=== PATIENT | male | born 1970 | race African-American/Black ===

== ENCOUNTER 2018-09-29 12:31 | Emergency (ER) | payer SELFPAY ==
[2018-09-29] MEDS ORDERED: ASPIRIN 81 MG TABLET, CHEWABLE PO ONE (13:05)
--- NOTE | 2018-09-29 13:07 | ER Document Report ---
ED Medical Screen (RME) - General Chief Complaint: Chest Pain Stated Complaint: CHEST PAINS Time Seen by Provider: 09/29/18 13:04 Mode of Arrival: Ambulatory Information source: Patient Notes: 48-year-old male presented to ED for complaint of chest pain/discomfort/tightness/pressure. He stated it started last night and has been on and off yesterday and today. He states that he has had it on and off for years. He states his pain level when he came to the emergency room was a 3 but last night it was about a 5. He has a history of high blood pressure and cholesterol but has not been on any cholesterol medications because he cannot afford it. He is a former smoker drinks on the weekends, denies using any kind of drugs. He works in a [employer]. He has no tenderness to palpation to the chest. Patient is alert oriented respirations regular and unlabored speaking in full sentences. I have greeted and performed a rapid initial assessment of this patient. A comprehensive ED assessment and evaluation of the patient, analysis of test results and completion of medical decision making process will be conducted by an additional ED providers. Dictation of this chart was performed using voice recognition software; therefore, there may be some unintended grammatical errors. TRAVEL OUTSIDE OF THE [place] IN LAST 30 DAYS: No - Related Data Allergies/Adverse Reactions: No Known Allergies Allergy (Verified 03/04/13 13:12) Past Medical History - Past Medical History Cardiac Medical History: Reports: Hx Hypercholesterolemia, Hx Hypertension Pulmonary Medical History: Denies: Hx Tuberculosis Neurological Medical History: Reports: Hx Migraine Musculoskeltal Medical History: Reports Hx Multiple Sclerosis - Questionable Past Surgical History: Reports: Hx Orthopedic Surgery - L hip w hardware, R knee, right wrist. Denies: Hx Pacemaker - Immunizations Hx Diphtheria, Pertussis, Tetanus Vaccination: Yes Physical Exam - Vital signs Vitals: Temp Pulse Resp BP Pulse Ox 98.1 F 68 20 161/82 H 93 09/29/18 12:56 09/29/18 12:56 09/29/18 12:56 09/29/18 12:56 09/29/18 12:56 Course - Vital Signs Vital signs: Temp Pulse Resp BP Pulse Ox 98.1 F 68 20 161/82 H 93 09/29/18 12:56 09/29/18 12:56 09/29/18 12:56 09/29/18 12:56 09/29/18 12:56
--- NOTE | 2018-09-29 13:52 | RADIOLOGY REPORT (SQ) ---
EXAM DESCRIPTION: CHEST 2 VIEWS COMPLETED DATE/TIME: 09/29/2018 1:36 pm REASON FOR STUDY: Chest tightness/discomfort/pressure started last n COMPARISON: 09/09/2011 EXAM PARAMETERS: NUMBER OF VIEWS: two views TECHNIQUE: Digital Frontal and Lateral radiographic views of the chest acquired. RADIATION DOSE: NA LIMITATIONS: none FINDINGS: LUNGS AND PLEURA: No opacities, masses or pneumothorax. No pleural effusion. MEDIASTINUM AND HILAR STRUCTURES: No masses or contour abnormalities. HEART AND VASCULAR STRUCTURES: Heart normal size. No evidence for failure. BONES: No acute findings. HARDWARE: None in the chest. OTHER: No other significant finding. IMPRESSION: NO ACUTE RADIOGRAPHIC FINDING IN THE CHEST. TECHNICAL DOCUMENTATION: JOB ID: [id number] [employer]- All Rights Reserved Reading location - IP/workstation name: [email or web address]
[2018-09-29 14:17] LABS: ABSOLUTE BASOPHILS # (AUTO) 0.1 10^3/uL (0.0-0.2); ABSOLUTE EOSINOPHILS # (AUTO) 0.1 10^3/uL (0.0-0.6); ABSOLUTE LYMPHOCYTES (AUTO) 3.4 10^3/uL (0.5-4.7); ABSOLUTE MONOCYTES (AUTO) 0.5 10^3/uL (0.1-1.4); ABSOLUTE NEUT (AUTO) 3.2 10^3/uL (1.7-8.2); BASOPHILS % (AUTO) 0.7 % (0-2); EOSINOPHILS % (AUTO) 1.6 % (0-6); HEMATOCRIT 42.2 % (37.9-51.0); HEMOGLOBIN 13.8 g/dL (13.5-17.0); LYMPHOCYTES % (AUTO) 46.3 % (13-45); MEAN CORPUSCULAR HEMOGLOBIN 27.4 pg (27.0-33.4); MEAN CORPUSCULAR HGB CONC 32.7 g/dL (32.0-36.0); MEAN CORPUSCULAR VOLUME 84 fl (80-97); MONOCYTES % (AUTO) 6.6 % (3-13); PLATELET COUNT 229 10^3/uL (150-450); RED BLOOD COUNT 5.03 10^6/uL (4.35-5.55); RED CELL DISTRIBUTION WIDTH 13.6 % (11.5-14.0); SEGMENTED NEUTROPHILS % (AUTO) 44.8 % (42-78); TOTAL CELLS COUNTED % (AUTO) 100 %; WHITE BLOOD COUNT 7.2 10^3/uL (4.0-10.5)
[2018-09-29 14:21] LABS: APPEARANCE,URINE CLEAR; BILIRUBIN,URINE NEGATIVE (NEGATIVE); COLOR,URINE YELLOW; GLUCOSE, URINE 50 mg/dL (NEGATIVE); KETONES,URINE NEGATIVE (NEGATIVE); LEUKOCYTE ESTERASE,URINE NEGATIVE (NEGATIVE); NITRITE,URINE NEGATIVE (NEGATIVE); PROTEIN,URINE NEGATIVE (NEGATIVE); URINE SPECIFIC GRAVITY 1.021; UROBILINOGEN,URINE NEGATIVE mg/dL (<2.0)
[2018-09-29 14:30] LABS: INTERNATIONAL RATION (INR) 0.93; PROTHROMBIN TIME 12.5 SEC (11.4-15.4)
[2018-09-29 14:31] LABS: PARTIAL THROMBOPLASTIN TIME 28.1 SEC (23.5-35.8)
[2018-09-29 14:36] LABS: URINE AMPHETAMINES SCREEN NEGATIVE; URINE BARBITURATES SCREEN NEGATIVE; URINE BENZODIAZEPINES SCREEN NEGATIVE; URINE COCAINE SCREEN NEGATIVE; URINE MARIJUANA (THC) SCREEN NEGATIVE; URINE METHADONE SCREEN NEGATIVE; URINE PHENCYCLIDINE SCREEN NEGATIVE
[2018-09-29 14:39] LABS: ALANINE AMINOTRANSFERASE 47 U/L (21-72); ALBUMIN 4.4 g/dL (3.5-5.0); ALKALINE PHOSPHATASE 67 U/L (38-126); ANION GAP 9 (5-19); ASPARTATE AMINO TRANSFERASE 30 U/L (17-59); BILIRUBIN,DIRECT 0.2 mg/dL (0.0-0.4); BILIRUBIN,TOTAL 0.3 mg/dL (0.2-1.3); BLOOD UREA NITROGEN 11 mg/dL (7-20); CALCIUM 9.5 mg/dL (8.4-10.2); CARBON DIOXIDE 29 mmol/L (22-30); CHLORIDE 105 mmol/L (98-107); CREATINE KINASE 153 U/L (55-170); GLUCOSE 109 mg/dL (75-110); POTASSIUM 4.2 mmol/L (3.6-5.0); TOTAL PROTEIN 7.6 g/dL (6.3-8.2)
[2018-09-29 14:50] LABS: CREATINE KINASE MB 0.66 ng/mL (<4.55)
[2018-09-29 14:54] LABS: TROPONIN I < 0.012 ng/mL
--- NOTE | 2018-09-29 18:47 | ER Document Report ---
ED Cardiac - General Chief Complaint: Chest Pain Stated Complaint: CHEST PAINS Time Seen by Provider: 09/29/18 13:04 Primary Care Provider: GLORIA JUAREZ MD [ACTIVE STAFF] - Follow up tomorrow Mode of Arrival: Ambulatory TRAVEL OUTSIDE OF THE [place] IN LAST 30 DAYS: No - HPI Notes: Patient is a 48-year-old male that presents to the emergency department for chief complaint of chest pain. Patient reports the pain on the left side of his chest that has been intermittent in nature and started yesterday evening. He describes it as a "charley horse" sensation. The pain does not radiate. He states usually it occurs after work and while he is at rest. He denies associated shortness of breath, palpitations, diaphoresis, nausea vomiting and syncopal episodes. There are no aggravating or relieving factors. He states he has been having these types of pains on and off for the last few years but felt it was time to get them evaluated. He is currently taking blood pressure medication but states noncompliance with cholesterol medicine and is currently in transition between PCPs. Patient denies ever having a stress test or known coronary artery dis ease. He denies recent surgery, travel, immobilization, lower extremity edema, and family history of DVT/PE. He has no personal history of cancer. Currently he states he is pain-free. Past Medical History: Hypertension, hyperlipidemia Past Surgical History: Negative Social History: Former smoker. Social alcohol. Denies drug use Family History: Reviewed and noncontributory for presenting illness Allergies: Reviewed, see documented allergy list. REVIEW OF SYSTEMS: CONSTITUTIONAL : No fever No chills No diaphoresis No recent illness EENT: No vision changes No congestion No sore throat CARDIOVASCULAR: chest pain No palpitations RESPIRATORY: No shortness of breath No cough No difficulty breathing GASTROINTESTINAL: No abdominal pain No nausea No vomiting No diarrhea GENITOURINARY: No dysuria No hematuria No difficulty urinating MUSCULOSKELETAL: No back pain No leg pain No arm pain SKIN: No rashes No lesions LYMPHATIC: No swollen, enlarged glands. NEUROLOGICAL: No lightheadedness No headache No weakness No paresthesias PSYCHIATRIC: No anxiety No depression PHYSICAL EXAMINATION: Vital signs reviewed, nursing noted reviewed. GENERAL: Well-appearing, overweight and in no acute distress. HEAD: Atraumatic, normocephalic. EYES: Eyes appear normal, extraocular movements intact, sclera anicteric, conjunctiva are normal. ENT: nares patent, oropharynx clear without exudates. Moist mucous membranes. NECK: Normal range of motion, supple without lymphadenopathy LUNGS: Breath sounds clear to auscultation bilaterally and equal. No wheezes rales or rhonchi. HEART: Regular rate and rhythm without murmurs, +5/5 bilateral radial pulses ABDOMEN: Soft, nontender, normoactive bowel sounds. No rebound, guarding, or rigidity. No masses appreciated. EXTREMITIES: Nontender, good range of motion, no pitting or edema. NEUROLOGICAL: No focal neurological deficits. Moves all extremities spontaneously Motor and sensory grossly intact on exam. PSYCH: Normal mood, normal affect. SKIN: Warm, Dry, normal turgor, no rashes or lesions noted on exposed skin - Related Data Allergies/Adverse Reactions: No Known Allergies Allergy (Verified 09/29/18 13:05) Past Medical History - General Information source: Patient - Social History Smoking Status: Former Smoker Chew tobacco use (# tins/day): No Frequency of alcohol use: Occasional Drug Abuse: None Family History: Reviewed & Not Pertinent Patient has suicidal ideation: No Patient has homicidal ideation: No - Past Medical History Cardiac Medical History: Reports: Hx Hypercholesterolemia, Hx Hypertension Pulmonary Medical History: Denies: Hx Tuberculosis Neurological Medical History: Reports: Hx Migraine Renal/ Medical History: Denies: Hx Peritoneal Dialysis Musculoskeletal Medical History: Reports Hx Multiple Sclerosis - Questionable Past Surgical History: Reports: Hx Orthopedic Surgery - L hip w hardware, R knee, right wrist. Denies: Hx Pacemaker - Immunizations Hx Diphtheria, Pertussis, Tetanus Vaccination: Yes Physical Exam - Vital signs Vitals: Temp Pulse Resp BP Pulse Ox 98.1 F 68 20 161/82 H 93 09/29/18 12:56 09/29/18 12:56 09/29/18 12:56 09/29/18 12:56 09/29/18 12:56 Course - Re-evaluation Re-evalutation: 09/29/18 18:45 Vitals reviewed. Nursing notes reviewed. Patient is well-appearing and in no acute distress. His initial cardiac work-up is negative including a normal troponin. Patient's EKG shows sinus rhythm without ectopy or ischemic changes. His heart score is 2 putting him at low risk of major adverse cardiac event in the immediate future. Delta troponin has been ordered. Laboratory 09/29/18 09/29/18 09/29/18 13:59 13:59 13:59 WBC 7.2 RBC 5.03 Hgb 13.8 Hct 42.2 MCV 84 MCH 27.4 MCHC 32.7 RDW 13.6 Plt Count 229 Seg Neutrophils % 44.8 Lymphocytes % 46.3 H Monocytes % 6.6 Eosinophils % 1.6 Basophils % 0.7 Absolute Neutrophils 3.2 Absolute Lymphocytes 3.4 Absolute Monocytes 0.5 Absolute Eosinophils 0.1 Absolute Basophils 0.1 PT 12.5 INR 0.93 APTT 28.1 Sodium 142.8 Potassium 4.2 Chloride 105 Carbon Dioxide 29 Anion Gap 9 BUN 11 Creatinine 0.85 Est GFR ( Amer) > 60 Est GFR (Non-Af Amer) > 60 Glucose 109 Calcium 9.5 Total Bilirubin 0.3 Direct Bilirubin 0.2 Neonat Total Bilirubin Not Reportable Neonat Direct Bilirubin Not Reportable Neonat Indirect Bili Not Reportable AST 30 ALT 47 Alkaline Phosphatase 67 Creatine Kinase 153 CK-MB (CK-2) Troponin I Total Protein 7.6 Albumin 4.4 Lipase 399.8 H Urine Color Urine Appearance Urine pH Ur Specific [place] Urine Protein Urine Glucose (UA) Urine Ketones Urine Blood Urine Nitrite Urine Bilirubin Urine Urobilinogen Ur Leukocyte Esterase Urine WBC (Auto) Urine RBC (Auto) Squamous Epi Cells Auto Urine Mucus (Auto) Urine Ascorbic Acid Urine Opiates Screen Urine Methadone Screen Ur Barbiturates Screen Ur Phencyclidine Scrn Ur Amphetamines Screen U Benzodiazepines Scrn Urine Cocaine Screen U Marijuana (THC) Screen 09/29/18 09/29/18 09/29/18 13:59 13:59 13:59 WBC RBC Hgb Hct MCV MCH MCHC RDW Plt Count Seg Neutrophils % Lymphocytes % Monocytes % Eosinophils % Basophils % Absolute Neutrophils Absolute Lymphocytes Absolute Monocytes Absolute Eosinophils Absolute Basophils PT INR APTT Sodium Potassium Chloride Carbon Dioxide Anion Gap BUN Creatinine Est GFR ( Amer) Est GFR (Non-Af Amer) Glucose Calcium Total Bilirubin Direct Bilirubin Neonat Total Bilirubin Neonat Direct Bilirubin Neonat Indirect Bili AST ALT Alkaline Phosphatase Creatine Kinase CK-MB (CK-2) 0.66 Troponin I < 0.012 Total Protein Albumin Lipase Urine Color YELLOW Urine Appearance CLEAR Urine pH 5.0 Ur Specific [place] 1.021 Urine Protein NEGATIVE Urine Glucose (UA) 50 H Urine Ketones NEGATIVE Urine Blood NEGATIVE Urine Nitrite NEGATIVE Urine Bilirubin NEGATIVE Urine Urobilinogen NEGATIVE Ur Leukocyte Esterase NEGATIVE Urine WBC (Auto) 5 Urine RBC (Auto) 1 Squamous Epi Cells Auto <1 Urine Mucus (Auto) OCC Urine Ascorbic Acid 40 H Urine Opiates Screen NEGATIVE Urine Methadone Screen NEGATIVE Ur Barbiturates Screen NEGATIVE Ur Phencyclidine Scrn NEGATIVE Ur Amphetamines Screen NEGATIVE U Benzodiazepines Scrn NEGATIVE Urine Cocaine Screen NEGATIVE U Marijuana (THC) Screen NEGATIVE Chest X-Ray 09/29/18 13:04 IMPRESSION: NO ACUTE RADIOGRAPHIC FINDING IN THE CHEST. 09/29/18 19:17 Patient second troponin is also negative. He has remained chest pain-free. He will be referred to cardiology for outpatient stress test and told to return for new or worsening symptoms. He is stable at discharge. - Vital Signs Vital signs: Temp Pulse Resp BP Pulse Ox 98.1 F 68 20 161/82 H 93 09/29/18 12:56 09/29/18 12:56 09/29/18 12:56 09/29/18 12:56 09/29/18 12:56 - Laboratory Result Diagrams: 09/29/18 13:59 09/29/18 13:59 Laboratory results interpreted by me: 09/29/18 09/29/18 09/29/18 13:59 13:59 13:59 Lymphocytes % 46.3 H Lipase 399.8 H Urine Glucose (UA) 50 H Urine Ascorbic Acid 40 H - EKG Interpretation by Me Additional EKG results interpreted by me: 09/29/18 18:46 Interpreted by myself 1245: Normal sinus rhythm, rate 63, normal axis, no ectopy, no STEMI Discharge - Discharge Clinical Impression: Chest pain Qualifiers: Chest pain type: unspecified Qualified Code(s): R07.9 - Chest pain, unspecified Condition: Stable Disposition: HOME, SELF-CARE Instructions: Chest Pain of Unclear Cause ([facility]) Additional Instructions: Please return to the emergency department if you have any worsening, or concern of your symptoms. Please return to the emergency department if you develop chest pain, difficulty breathing, severe abdominal pain, or ongoing vomiting. Please follow-up with your primary care physician in 2-3 days and any other recommended physicians. If prescribed, take all medications as directed. If you have any questions or concerns do not hesitate to return the emergency department for evaluation. Contact Dr. Juarez tomorrow to schedule outpatient cardiac stress test Referrals: GLORIA JUAREZ MD [ACTIVE STAFF] - Follow up tomorrow
[2018-09-29 19:34] VITALS: BP 142/81
--- NOTE | 2018-09-29 23:50 | EKG REPORT ---
SEVERITY:- NORMAL ECG - SINUS RHYTHM : Confirmed by: Trey Hopper 29-Sep-2018 23:48:37
== END 2018-09-29 19:40 | disposition home or self-care (01) ==
LOC: ER 12:31
DX: R07.9 Chest pain, unspecified (principal); I10 Essential (primary) hypertension; Z79.899 Other long term (current) drug therapy; Z87.891 Personal history of nicotine dependence; Z91.14 Patient's other noncompliance with medication regimen
CPT/HCPCS: 36415; 71046; 80053; 80307; 81001; 82550; 82553; 83690; 84484; 85025; 85610; 85730; 93005; 93010; 99285

== ENCOUNTER 2018-11-09 22:54 | Emergency (ER) | payer OTHER ==
[2018-11-09 23:01] VITALS: BP 162/80
[2018-11-10] MEDS ORDERED: HYDROCODONE/ACETAMINOPHEN 5-325 MG (6 TAB/ER DISP) PO PRN (00:40)
[2018-11-10] MEDS ORDERED: PENICILLIN V POTASSIUM 500 MG TABLET PO ONE (00:40)
--- NOTE | 2018-11-10 00:51 | ER Document Report ---
HPI - HPI Time Seen by Provider: 11/10/18 00:29 Context: Patient is a 48-year-old male that comes to the emergency department for chief complaint of pain in his left upper tooth and over the tongue. He states he thinks he bit his tongue yesterday and now the area is rubbing and worsening pain. He states he cannot sleep because of it. He states he does not have dental insurance anymore and he is not sure what today. He denies sore throat, neck pain, fever, difficulty swallowing or breathing, or any other complaints at this time. Past Medical History - General Information source: Patient - Social History Smoking Status: Never Smoker Drug Abuse: None Lives with: Family Family History: Reviewed & Not Pertinent Patient has suicidal ideation: No Patient has homicidal ideation: No - Past Medical History Cardiac Medical History: Reports: Hx Hypercholesterolemia, Hx Hypertension Pulmonary Medical History: Denies: Hx Tuberculosis Neurological Medical History: Reports: Hx Migraine Renal/ Medical History: Denies: Hx Peritoneal Dialysis Musculoskeletal Medical History: Reports Hx Multiple Sclerosis - Questionable Past Surgical History: Reports: Hx Orthopedic Surgery - L hip w hardware, R knee, right wrist. Denies: Hx Pacemaker - Immunizations Hx Diphtheria, Pertussis, Tetanus Vaccination: Yes Vertical Provider Document - CONSTITUTIONAL General Appearance: WD/WN, No Apparent Distress - INFECTION CONTROL TRAVEL OUTSIDE OF THE [place] IN LAST 30 DAYS: No - HEENT HEENT: Atraumatic, Normocephalic. negative: Normal ENT Exam - Left upper posterior molar with dental fracture, tenderness on palpation, but no significant surrounding erythema or swelling. Scattered dental caries otherwise without signs of infection. There is a healing wound over the top of the tongue with some scraping over the area, however the area is not significantly tender, there is no current bleeding, there is no fluctuance or induration, there is no significant tenderness or swelling. Unremarkable ENT exam otherwise including normal uvula and normal pharyngeal exam. Normal nasal and sinus exams. - NECK Neck: Normal Inspection. negative: Lymphadenopathy-Left, Lymphadenopathy-Right - RESPIRATORY Respiratory: Breath Sounds Normal, No Respiratory Distress - CARDIOVASCULAR Cardiovascular: Regular Rate, Regular Rhythm - GI/ABDOMEN Gastrointestinal: Abdomen Soft, Abdomen Non-Tender - BACK Back: Normal Inspection - MUSCULOSKELETAL/EXTREMETIES Musculoskeletal/Extremeties: MAEW, FROM, Non-Tender - NEURO Level of Consciousness: Awake, Alert, Appropriate Motor/Sensory: No Motor Deficit, No Sensory Deficit - DERM Integumentary: Warm, Dry, No Rash Course - Re-evaluation Re-evalutation: Patient will be treated with antibiotics for for the pain developing at the dental caries. Tongue evaluation shows healing wound but no concerning findings otherwise. I did discuss [id number] options, antibiotics, dental follow- up, and provided him with a few pain med doses so that he can sleep. Discussed return precautions. Patient states understanding and agreement. - Vital Signs Vital signs: Temp Pulse Resp BP Pulse Ox 98.2 F 73 18 162/80 H 96 11/09/18 23:00 11/09/18 23:00 11/09/18 23:00 11/09/18 23:00 11/09/18 23:00 Discharge - Discharge Clinical Impression: Tongue pain, Pain, dental Condition: Stable Disposition: HOME, SELF-CARE Additional Instructions: You have dental caries which are causing rubbing and irritation on the back of the tongue on the left side. Take the antibiotics as prescribed, follow close with the dental referral listed below for additional management. [id number] remedies such as Dentemp or similar alternatives might help with the rubbing. Return for any concerning symptoms including developing swelling of the face, swelling of the tongue, fever/chills, severe worsening pain, or any other concerning symptoms. [facility] [address], [address] Prescriptions: Penicillin V Potassium [Penicillin Vk 500 mg Tablet] 500 mg PO BID #20 tablet
== END 2018-11-10 01:27 | disposition home or self-care (01) ==
LOC: ER 22:54
DX: K08.9 Disorder of teeth and supporting structures, unspecified (principal); K14.6 Glossodynia; E78.00 Pure hypercholesterolemia, unspecified; I10 Essential (primary) hypertension
CPT/HCPCS: 99283

== ENCOUNTER 2019-04-11 16:27 | Emergency (ER) | payer BC, OTHER ==
[2019-04-11] MEDS ORDERED: ONDANSETRON 4 MG TAB.RAPDIS PO ONE (17:52)
[2019-04-11] MEDS ORDERED: NORMAL SALINE 500 ML IV ONE (17:53)
--- NOTE | 2019-04-11 17:56 | ER Document Report ---
ED Medical Screen (RME) - General Chief Complaint: Abdominal Pain Stated Complaint: ABDOMINAL PAIN,VOMITING Time Seen by Provider: 04/11/19 17:51 Mode of Arrival: Ambulatory Information source: Patient Notes: 49-year-old male presented to ED for complaint of abdominal pain nausea and vomiting diarrhea. He states the pain just started this a.m. He has vomited x2 and one diarrhea stool. He also has some discomfort to his left shoulder. He states is not really pain is just uncomfortable. Patient is alert oriented respirations regular nonlabored speaking in full sentences. I have greeted and performed a rapid initial assessment of this patient. A comprehensive ED assessment and evaluation of the patient, analysis of test results and completion of medical decision making process will be conducted by an additional ED providers. TRAVEL OUTSIDE OF THE [place] IN LAST 30 DAYS: No - Related Data Allergies/Adverse Reactions: No Known Allergies Allergy (Verified 04/11/19 17:44) Past Medical History - Past Medical History Cardiac Medical History: Reports: Hx Hypercholesterolemia, Hx Hypertension Pulmonary Medical History: Denies: Hx Tuberculosis Neurological Medical History: Reports: Hx Migraine Renal/ Medical History: Denies: Hx Peritoneal Dialysis Musculoskeltal Medical History: Reports Hx Multiple Sclerosis - Questionable Past Surgical History: Reports: Hx Orthopedic Surgery - L hip w hardware, R knee, right wrist. Denies: Hx Pacemaker - Immunizations Hx Diphtheria, Pertussis, Tetanus Vaccination: Yes Physical Exam - Vital signs Vitals: Temp Pulse Resp BP Pulse Ox 99.4 F 96 18 151/107 H 98 04/11/19 17:34 04/11/19 17:34 04/11/19 17:34 04/11/19 17:34 04/11/19 17:34 Course - Vital Signs Vital signs: Temp Pulse Resp BP Pulse Ox 99.4 F 96 18 151/107 H 98 04/11/19 17:34 04/11/19 17:34 04/11/19 17:34 04/11/19 17:34 04/11/19 17:34
[2019-04-11 19:21] LABS: ABSOLUTE LYMPHOCYTES (AUTO) 1.7 10^3/uL (0.5-4.7); ABSOLUTE MONOCYTES (AUTO) 0.5 10^3/uL (0.1-1.4); ABSOLUTE NEUT (AUTO) 6.1 10^3/uL (1.7-8.2); BASOPHILS % (AUTO) 0.2 % (0-2); EOSINOPHILS % (AUTO) 0.1 % (0-6); HEMATOCRIT 43.9 % (37.9-51.0); HEMOGLOBIN 14.7 g/dL (13.5-17.0); LYMPHOCYTES % (AUTO) 20.3 % (13-45); MEAN CORPUSCULAR HEMOGLOBIN 27.9 pg (27.0-33.4); MEAN CORPUSCULAR HGB CONC 33.4 g/dL (32.0-36.0); MEAN CORPUSCULAR VOLUME 84 fl (80-97); MONOCYTES % (AUTO) 5.5 % (3-13); PLATELET COUNT 210 10^3/uL (150-450); RED BLOOD COUNT 5.25 10^6/uL (4.35-5.55); RED CELL DISTRIBUTION WIDTH 13.9 % (11.5-14.0); SEGMENTED NEUTROPHILS % (AUTO) 73.9 % (42-78); TOTAL CELLS COUNTED % (AUTO) 100 %; WHITE BLOOD COUNT 8.3 10^3/uL (4.0-10.5)
[2019-04-11 19:36] LABS: APPEARANCE,URINE SLIGHTLY-CLOUDY; BILIRUBIN,URINE NEGATIVE (NEGATIVE); CALCIUM OXALATE CRYSTALS,URINE MODERATE /HPF; COLOR,URINE YELLOW; GLUCOSE, URINE NEGATIVE (NEGATIVE); KETONES,URINE NEGATIVE (NEGATIVE); PROTEIN,URINE 30 mg/dL (NEGATIVE); URINE SPECIFIC GRAVITY 1.028; UROBILINOGEN,URINE NEGATIVE mg/dL (<2.0)
[2019-04-11 19:44] LABS: ALBUMIN 4.3 g/dL (3.5-5.0); ALKALINE PHOSPHATASE 76 U/L (38-126); ANION GAP 9 (5-19); ASPARTATE AMINO TRANSFERASE 28 U/L (17-59); BILIRUBIN,TOTAL 0.3 mg/dL (0.2-1.3); BLOOD UREA NITROGEN 12 mg/dL (7-20); CALCIUM 9.6 mg/dL (8.4-10.2); CARBON DIOXIDE 26 mmol/L (22-30); CHLORIDE 104 mmol/L (98-107); GLUCOSE 96 mg/dL (75-110); POTASSIUM 4.2 mmol/L (3.6-5.0); TOTAL PROTEIN 7.5 g/dL (6.3-8.2)
[2019-04-11] MEDS ORDERED: ONDANSETRON 4 MG TAB.RAPDIS ONE (20:33)
--- NOTE | 2019-04-11 20:57 | ER Document Report ---
ED General - General Chief Complaint: Nausea/Vomiting/Diarrhea Stated Complaint: ABDOMINAL PAIN,VOMITING Time Seen by Provider: 04/11/19 17:51 Mode of Arrival: Ambulatory Information source: Patient TRAVEL OUTSIDE OF THE [place] IN LAST 30 DAYS: No - HPI Onset: This morning Onset/Duration: Gradual Quality of pain: Achy Severity: Moderate Associated symptoms: Body/muscle aches, Chills, Diarrhea, Nausea, Vomiting, Weakness Exacerbated by: Denies Relieved by: Denies Similar symptoms previously: No Recently seen / treated by doctor: No Notes: 49 year old male with a history of HTN and HLD who is not on any medications at the moment due to being lost to follow up here for 1 days of nausea, vomiting, diarrhea, low grade fevers, chills, mild body aches. The patient says his daughter was diagnosed with the Flu last week. The patient ate at [employer] last night by himself but he says nothing tasted funny. The patient denies recent travel or recent antibiotic use. - Related Data Allergies/Adverse Reactions: No Known Allergies Allergy (Verified 04/11/19 17:44) Home Medications: losartan Past Medical History - General Information source: Patient - Social History Smoking Status: Current Every Day Smoker Frequency of alcohol use: Social Drug Abuse: None Lives with: Family Family History: Reviewed & Not Pertinent Patient has suicidal ideation: No Patient has homicidal ideation: No - Past Medical History Cardiac Medical History: Reports: Hx Hypercholesterolemia, Hx Hypertension Pulmonary Medical History: Denies: Hx Tuberculosis Neurological Medical History: Reports: Hx Migraine Renal/ Medical History: Denies: Hx Peritoneal Dialysis Musculoskeletal Medical History: Reports Hx Multiple Sclerosis - Questionable Past Surgical History: Reports: Hx Orthopedic Surgery - L hip w hardware, R knee, right wrist. Denies: Hx Pacemaker - Immunizations Hx Diphtheria, Pertussis, Tetanus Vaccination: Yes Review of Systems - Review of Systems Constitutional: Chills, Fever, Weakness EENT: No symptoms reported Cardiovascular: No symptoms reported Respiratory: No symptoms reported Gastrointestinal: Diarrhea, Nausea, Vomiting Genitourinary: No symptoms reported Male Genitourinary: No symptoms reported Musculoskeletal: Other - body aches Skin: No symptoms reported Hematologic/Lymphatic: No symptoms reported Neurological/Psychological: No symptoms reported -: Yes All other systems reviewed and negative Physical Exam - Vital signs Vitals: Temp Pulse Resp BP Pulse Ox 99.4 F 96 18 151/107 H 98 04/11/19 17:34 04/11/19 17:34 04/11/19 17:34 04/11/19 17:34 04/11/19 17:34 - Notes Notes: GENERAL: Well-appearing, well-nourished and in no acute distress. HEAD: Atraumatic, normocephalic. EYES: Pupils equal round and reactive to light, extraocular movements intact, sclera anicteric, conjunctiva are normal. ENT: TMs normal, nares patent, oropharynx clear without exudates. Moist mucous membranes. NECK: Normal range of motion, supple without lymphadenopathy or JVD. LUNGS: Breath sounds clear to auscultation bilaterally and equal. No wheezes rales or rhonchi. HEART: Regular rate and rhythm without murmurs, rubs or gallops. ABDOMEN: Soft, nontender, normoactive bowel sounds. No guarding, no rebound. No masses appreciated. EXTREMITIES: Normal range of motion, no pitting or edema. No clubbing or cyanosis. NEUROLOGICAL: Cranial nerves II through XII grossly intact. Normal speech, normal gait. PSYCH: Normal mood, normal affect. SKIN: Warm, Dry, normal turgor, no rashes or lesions noted. Course - Re-evaluation Re-evalutation: 04/11/19 22:48 The patient is here for nausea, vomiting, and diarrhea. He likely has a viral GI illness. Patient's daughter recently had the Flu but he tested negative for it in the ER. An abdominal US was ordered by a midlevel during the MSE process and this showed a fatty liver but no acute process. Patient felt better after fluids and anti-emetics. Patient has no PCP. Will DC patient with scripts for Reglan and will refer patient to a PCP. - Vital Signs Vital signs: Temp Pulse Resp BP Pulse Ox 99.4 F 96 22 H 174/82 H 97 04/11/19 17:34 04/11/19 17:34 04/11/19 22:01 04/11/19 22:01 04/11/19 22:01 - Laboratory Result Diagrams: 04/11/19 18:56 04/11/19 18:56 Laboratory results interpreted by me: 04/11/19 18:56 Urine Protein 30 H Discharge - Discharge Clinical Impression: Gastroenteritis Condition: Stable Disposition: HOME, SELF-CARE Instructions: Gastroenteritis (adult) ([facility]) Additional Instructions: Eat a bland diet until symptoms pass. Drink plenty of fluids in the days to co me. Use Reglan as needed for nausea/GI upset. You had blood work and a urine analysis in the ER which were unremarkable and within normal limits. Your abdominal ultrasound from today shows a fatty liver but no acute process. You tested negative for the Flu. Follow up with one of the primary care doctor listed in your discharge paperwork. Prescriptions: Metoclopramide HCl [Reglan 10 mg Tablet] 1 tab PO ASDIR PRN #15 tablet PRN Reason: Referrals: SHABBIR SÁNCHEZ MD [ACTIVE STAFF] - Follow up as needed
--- NOTE | 2019-04-11 21:14 | RADIOLOGY REPORT (SQ) ---
EXAM DESCRIPTION: Right upper quadrant ultrasound CLINICAL HISTORY: 49 years Male; Upper abdominal pain nausea vomiting diarrhea TECHNIQUE: Abdominal ultrasound was performed. COMPARISON: None. FINDINGS: Pancreas: visualized portions are unremarkable. Liver: Measures 18.7 cm in length. There is diffusely increased echogenicity consistent with fatty infiltration. No obvious mass or biliary dilatation. The portal vein is patent with hepatopedal flow.. Gallbladder: Gallbladder is small and contracted. The wall is 2.3 mm. No sonographic Parra's. No obvious stones. Common bile duct: 2.2 mm. Right kidney: . Measures 11 cm in length. Blood flow is seen. Echogenicity is normal. Aorta:Visualized portions are within normal limits. IVC: Visualized portions are within normal limits. Ascites: No free fluid. IMPRESSION: 1. Diffuse fatty infiltration of the liver with mild hepatomegaly. 2. The gallbladder small and contracted. No obvious stones. No biliary dilatation 3 normal-appearing right kidney
[2019-04-11] MEDS ORDERED: METOCLOPRAMIDE HCL INJ/PF 10 MG/2 ML SDV IV ONE (21:29)
[2019-04-11 22:03] LABS: A TYPE INFLUENZA AG NEGATIVE (NEGATIVE); B INFLUENZA AG NEGATIVE (NEGATIVE)
[2019-04-11 23:53] VITALS: BP 136/66
== END 2019-04-11 23:53 | disposition home or self-care (01) ==
LOC: ER 16:27
DX: K52.9 Noninfective gastroenteritis and colitis, unspecified (principal); R11.2 Nausea with vomiting, unspecified; M79.10 Myalgia, unspecified site; R53.1 Weakness; I10 Essential (primary) hypertension
CPT/HCPCS: 99284; 96361; 96374; 36415; 83690; 85025; 80053; 81001; 87804; 76705; S0119; J2765; J7040

== ENCOUNTER → 2019-04-21 | Outpatient (CLI) | payer BC, MEDICAID ==
[2019-04-21 08:45] LABS: ABSOLUTE BASOPHILS # (AUTO) 0.1 10^3/uL (0.0-0.2); ABSOLUTE EOSINOPHILS # (AUTO) 0.1 10^3/uL (0.0-0.6); ABSOLUTE LYMPHOCYTES (AUTO) 3.4 10^3/uL (0.5-4.7); ABSOLUTE MONOCYTES (AUTO) 0.6 10^3/uL (0.1-1.4); ABSOLUTE NEUT (AUTO) 4.2 10^3/uL (1.7-8.2); BASOPHILS % (AUTO) 1.4 % (0-2); EOSINOPHILS % (AUTO) 1.5 % (0-6); HEMOGLOBIN 14.2 g/dL (13.5-17.0); LYMPHOCYTES % (AUTO) 40.6 % (13-45); MEAN CORPUSCULAR HEMOGLOBIN 28.1 pg (27.0-33.4); MEAN CORPUSCULAR HGB CONC 33.7 g/dL (32.0-36.0); MEAN CORPUSCULAR VOLUME 83 fl (80-97); MONOCYTES % (AUTO) 6.7 % (3-13); PLATELET COUNT 254 10^3/uL (150-450); RED BLOOD COUNT 5.04 10^6/uL (4.35-5.55); SEGMENTED NEUTROPHILS % (AUTO) 49.8 % (42-78); TOTAL CELLS COUNTED % (AUTO) 100 %; WHITE BLOOD COUNT 8.5 10^3/uL (4.0-10.5)
[2019-04-21 09:05] LABS: ALBUMIN 4.2 g/dL (3.5-5.0); ALKALINE PHOSPHATASE 77 U/L (38-126); ANION GAP 9 (5-19); ASPARTATE AMINO TRANSFERASE 26 U/L (17-59); BILIRUBIN,DIRECT 0.2 mg/dL (0.0-0.4); BILIRUBIN,TOTAL 0.4 mg/dL (0.2-1.3); BLOOD UREA NITROGEN 12 mg/dL (7-20); CALCIUM 9.4 mg/dL (8.4-10.2); CARBON DIOXIDE 28 mmol/L (22-30); CHLORIDE 106 mmol/L (98-107); CHOLESTEROL 208.72 mg/dL (0-200); GLUCOSE 106 mg/dL (75-110); POTASSIUM 4.4 mmol/L (3.6-5.0); TOTAL PROTEIN 7.5 g/dL (6.3-8.2); TRIGLYCERIDES 125 mg/dL (<150)
[2019-04-21 09:17] LABS: DIRECT LDL 161 mg/dL (<100)
== END ==
LOC: OD 08:19
PROVIDERS: ATTEND Internal Medicine
DX: Z00.00 Encounter for general adult medical examination without abnormal findings (principal); I10 Essential (primary) hypertension; R53.83 Other fatigue
CPT/HCPCS: 36415; 80053; 80061; 84153; 84443; 85025